=== PATIENT | male | born 1975 | race Caucasian/White ===

== ENCOUNTER 2018-05-17 20:35 | Emergency (ER) | payer SELFPAY ==
[~2018-05-17] VITALS: Ht 167.6 cm; Wt 67.1 kg
[2018-05-17 20:46] VITALS: BP 142/93; Ht 167.6 cm; Wt 67.1 kg
== END 2018-05-17 23:42 | disposition left against medical advice (07) ==
LOC: ED 20:35
DX: Z53.21 Procedure and treatment not carried out due to patient leaving prior to being seen by health care provider (principal)